=== PATIENT | male | born 1985 | race Asian ===

== ENCOUNTER 2022-10-01 08:00 | Emergency (ER) | payer OTHER, SELFPAY ==
[2022-10-01 08:20] VITALS: BP 149/98; PULSE 85; RESP 16; TEMP 36.3; O2SAT 99
--- NOTE | 2022-10-01 08:28 | ED.LOWEXIN ---
HPI - Extremity Injury (Lower) General Chief Complaint: Extremity Injury, Lower Stated Complaint: lt foot injury Time Seen by Provider: 10/01/22 08:29 Source: patient Mode of arrival: ambulatory Limitations: no limitations History of Present Illness HPI Narrative: 37-year-old male presented for complaint of left great toe pain, redness, and swelling over the last week. He states this started as ?extreme pain? in for 2 days he rested and elevated the foot and had some relief in pain. States he returned to normal activity then developed the pain again. Pain is worse to the inside of the toe ball junction, worse with pressure. Not taking anything for pain. Denies injury. Denies insect bite or source of infection. Denies any other locations of similar symptoms. Related Data Allergies Allergy/AdvReac Type Severity Reaction Status Date / Time No Known Allergies Allergy Verified 10/01/22 08:20 Review of Systems Review of Systems: CONSTITUTIONAL: Denies body aches, fever, chills EYES: Denies visual changes ENT: Denies rhinorrhea, congestion CARDIOVASCULAR: Denies chest pain, palpitations, or edema. RESPIRATORY: Denies cough or dyspnea. GASTROINTESTINAL: Denies abdominal pain, nausea, vomiting, or diarrhea. SKIN: Denies rash, itching, or wounds. MUSCULOSKELETAL: per HPI NEUROLOGIC: Denies headache, numbness, tingling, or weakness. All systems reviewed & are unremarkable except as noted in HPI and below PMFSH Past Medical History Medical History (Updated 10/01/22 @ 08:49 by Gaby Torres, ZULAY) No pertinent past medical history Comments At time of signature, I have reviewed and agree with nursing past medical, surgical, social and family history unless otherwise noted. Please see nursing chart for further information. There is no relevant family history pertinent to the presenting complaint Exam Narrative: GENERAL: Well-appearing, well-nourished, and in no acute distress. HEAD: Normocephalic, atraumatic. EYES: PERRLA, conjunctivae clear NECK: Supple. CHEST: Speaks in full sentences. No respiratory distress. HEART: Regular rate and rhythm. Normal and equal peripheral pulses. EXTREMITIES: Left 1st toe MTP erythematous, moderate swelling and exquisite tenderness at joint. Foot has normal strength and sensation, limited range of motion with flexion/extension of 1st toe due to pain with movement. No open wounds or obvious deformity; alignment normal, pulse palpable and equal bilaterally, skin warm, dry, pink. Capillary refill less than 3 seconds. SKIN: Warm, dry,, no wounds or rash. NEURO: Alert and oriented x3. PSYCH: Normal mood and affect Course Course Emergency Course: Patient is aware of diagnosis, understands and agrees to treatment plan. Anticipatory guidance given. Patient agrees to follow-up as directed and is aware of reasons to seek care at the emergency department. Portions of this record may have been created with voice recognition software Level of Care: Express Care Visit Vital Signs Vital signs: Vital Signs Temperature 97.3 F L 10/01/22 08:20 Pulse Rate 85 10/01/22 08:20 Respiratory Rate 16 10/01/22 08:20 Blood Pressure 149/98 H 10/01/22 08:20 Pulse Oximetry 99 10/01/22 08:20 Oxygen Delivery Room Air 10/01/22 08:20 Temperature 97.3 F L 10/01/22 08:20 Pulse Rate 85 10/01/22 08:20 Respiratory Rate 16 10/01/22 08:20 Blood Pressure 149/98 H 10/01/22 08:20 Pulse Oximetry 99 10/01/22 08:20 Oxygen Delivery Room Air 10/01/22 08:20 Reviewed MDM - Extremity Injury (Lower) MDM Narrative Medical decision making narrative: Discussed physical exam findings. Advised supportive measures and signs/symptoms to go to the ER. Pt is appropriate for outpt treatment and f/u. Differential Diagnosis Differential diagnosis: Likely puncture wound of foot, fracture of toe and other (gout, cellulitis, arthritis, tendonitis, plantar fasciitis) Discharge Plan Di
== END 2022-10-01 08:50 | disposition home or self-care (01) ==
PROVIDERS: Emergency Provider Nurse Practitioner Family
DX: M10.9 Gout, unspecified (principal)
CPT/HCPCS: 99213; G0463